=== PATIENT | female | born 1960 | race African-American/Black ===

== ENCOUNTER → 2023-10-14 | Outpatient (CLI) | payer MEDICARE ==
--- NOTE | 2023-10-17 08:24 | MM ---
Reason for Exam: Screening (asymptomatic). Last mammogram was performed 12 year(s) and 11 month(s) ago. Patient History: Menarche at age 10. First Full-Term at age 13. Postmenopausal. Mother had ovarian cancer. Risk Values: Dorita 5 year model risk: 1.7%. NCI Lifetime model risk: 6.0%. Prior Study Comparison: 01/09/2004 Bilateral Screening Mammogram, [facility]. 11/11/2009 Bilateral Screening Mammogram, [facility]. 11/16/2010 Bilateral Screening Mammogram, [facility]. Tissue Density: There are scattered areas of fibroglandular density. Findings: Analyzed By CAD. There is no suspicious group of microcalcifications or new suspicious mass in either breast. Overall Assessment: Negative, BI-RAD 1 Management: Screening Mammogram of both breasts in 1 year. . Patient should continue monthly self-breast exams. A clinical breast exam by your physician is recommended on an annual basis. This exam should not preclude additional follow-up of suspicious palpable abnormalities. Note on Dorita scores and lifetime risk: 1. A Dorita score greater than 3% is considered moderate risk. If this is the case, consider specialist referral to assess eligibility for a risk reducing agent. 2. If overall lifetime risk for the development of breast cancer is 20% or higher, the patient may qualify for future screening with alternating mammogram and breast MRI. Electronically signed and approved by: Otto Guerrero M.D. Radiologis
== END | disposition home or self-care (01) ==
LOC: RADMAMWWP 11:34
PROVIDERS: ATTEND Family Medicine
DX: Z12.31 Encounter for screening mammogram for malignant neoplasm of breast (principal); R92.323 Mammographic fibroglandular density, bilateral breasts; Z78.0 Asymptomatic menopausal state
CPT/HCPCS: 77063; 77067

== ENCOUNTER → 2023-12-28 | Outpatient (CLI) | payer MEDICARE ==
--- NOTE | 2024-01-02 22:21 | P.PCN ---
Date of Procedure: 12/28/23 Operative Findings: Home sleep study testing Date of service is 12/28/2023 Pertinent history This is a 66-year-old female patient, referred to me due to concerns of obstructive sleep apnea. This evaluation was requested to obtain a DOT certification as the patient is a schoolbus delivery route driver. The patient is currently averaging around 7 hours of sleep. No major hypersomnia or sleepiness during the day. Her current Wylie score is 3. The patient has history of loud snoring. No significant comorbid conditions at this point in time Pertinent physical findings Weight is 211 pounds with a body mass index of 42.6 Technical description The [employer] system was used to complete his home sleep study. This is a type III home sleep study evaluation. The total recording duration was 9 hours and 19 minutes. The study started at 10:17 PM and the study ended at 7:36 AM. There was a total of 9 hours and 4 minutes of flow monitoring and 9 hours and 3 minutes of oxygen saturation monitoring. Respiratory count The respiratory analysis showed a total of 49 obstructive apneas and 78 obstructive hypopneas. The resulting AHI was 14 Oxygenation analysis The baseline pulse ox while awake was 96%, average pulse ox during sleep was 93% and the minimum pulse ox was 74% and the patient spent approximately 70 minutes of sleep time below pulse ox of 89% Cardiac summary The average heart rate was 70 with a minimum heart rate of 57 and the maximum heart rate of 135 Assessment Mild CLYDE with an AHI of 14 associated with some mild nocturnal desaturation with a minimum pulse ox of 74% Snoring No major hypersomnia or sleepiness with an Wylie score of 3 Obesity with a BMI of 42 Schoolbus delivery route driver Plan There is also discussed with the patient. As the patient is seeking DOT certification for schoolbus driving, it would be important for this patient to be treated with CPAP therapy. If willing to undertake the treatment, going to offer this patient an APAP machine pressures of 5/15 cm of water with appropriate mask interface and the patient was seen back in follow-up for a compliancy check. Once compliant, should be able to obtain her DOT certification. Meanwhile, encouraged losing weight, optimize sleep hygiene measures. No other major comorbidities at this point. Will follow.
== END | disposition home or self-care (01) ==
LOC: 3 N SLEEP 11:13
PROVIDERS: ATTEND Internal Medicine Critical Care Medicine
DX: G47.33 Obstructive sleep apnea (adult) (pediatric) (principal); G47.36 Sleep related hypoventilation in conditions classified elsewhere; E66.9 Obesity, unspecified; Z68.41 Body mass index [BMI] 40.0-44.9, adult; Z91.09 Other allergy status, other than to drugs and biological substances; Z87.891 Personal history of nicotine dependence

== ENCOUNTER → 2024-05-14 | Outpatient (CLI) | payer MEDICARE, OTHER ==
[2024-05-14 12:50] VITALS: BP 134/93; PULSE 80; RESP 16; TEMP 97.6; BMI 43.8
--- NOTE | 2024-05-14 15:08 | P.HPBAR ---
Bariatric H&P - History & Physicial H&P Date: 05/14/24 History & Physicial: Visit/CC: f/u lapband Patient initial contact: Initial weight: 106.458 kg Initial weight in pounds: 234.70 Height: 4 ft 11 in Initial BMI: 47.4 Last weight: Current weight: 98.43 kg Current weight in pounds: 217.00 Current BMI: 43.8 [place] body weight (based on NIH guidelines): Excess body weight loss: The patient is a 63 year-old F who presents for Bariatric Assessment. This is a 63-year-old female who had Lap-Band surgery performed many years ago. Patient is often seen for a decade. Patient wished to have a adjustment of her Lap- Band. She states she has gained approxi-30 pounds over the last year. Past Medical History Past Medical History: Hypertension Additional Past Medical History / Comment(s): allergies History of Any Multi-Drug Resistant Organisms: None Reported Past Surgical History: Adenoidectomy, Bariatric Surgery, Section, Cholecystectomy, Hernia Repair, Orthopedic Surgery, Tonsillectomy, Tubal Ligation Additional Past Surgical History / Comment(s): lap band, surgery on lt wrist Past Anesthesia/Blood Transfusion Reactions: Previous Problems w/ Anesthesia Additional Past Anesthesia/Blood Transfusion Reaction / Comm: woke up during surgery twice Past Psychological History: No Psychological Hx Reported Smoking Status: Former smoker Past Alcohol Use History: None Reported Past Drug Use History: None Reported - Past Family History Mother Family Medical History: Cancer, Hypertension, Thyroid Disorder Additional Family Medical History / Comment(s): kidney failure, ovarian cancer, peptic ulcers, thyroid cancer Father Family Medical History: Cancer, Diabetes Mellitus Additional Family Medical History / Comment(s): from cancer, Surgical - Exam Vital Signs Temp Pulse Resp BP 97.6 F 80 16 134/93 05/14/24 12:35 05/14/24 12:35 05/14/24 12:35 05/14/24 12:35 - General well developed, well nourished, no distress - Eyes PERRL - ENT normal pinna - Neck no masses, no bruits - Respiratory normal expansion - Cardiovascular Rhythm: regular - Abdomen Abdomen: soft, non tender Bariatric Assessment & Plan Plan: Patient's Lap-Band adjusted. She had 0.3 cc after the band. She will follow-up in 4 weeks. Bariatric Checklist Checklist: Plan: Checklist: EGD: 1. Hiatal hernia: 2. H. Pylori: HgbA1c: Vitamin D: Smoking: Former smoker Primary care physician referral: Luis Felipe Olson/Dr Hutchinson Psychiatry clearance: Cardiology clearance: Sleep study: Diet journal: VTE risk score: VTE risk level: Rehab needs at discharge:
== END ==
LOC: BARWHC3 12:08
PROVIDERS: ATTEND Surgery
DX: Z46.51 Encounter for fitting and adjustment of gastric lap band (principal); Z68.41 Body mass index [BMI] 40.0-44.9, adult; Z87.891 Personal history of nicotine dependence; Z91.09 Other allergy status, other than to drugs and biological substances
CPT/HCPCS: 99211

== ENCOUNTER → 2024-05-22 | Outpatient (CLI) | payer MEDICARE, OTHER ==
--- NOTE | 2024-05-22 10:24 | US ---
EXAMINATION TYPE: US thyroid st tissue head/neck DATE OF EXAM: 05/22/2024 COMPARISON: NONE CLINICAL INDICATION: Female, 63 years old with history of E04.9 nontoxic goiter; Family history of th yroid CA TECHNIQUE: Grayscale and color Doppler imaging of the thyroid gland. FINDINGS: GLAND SIZE: Right Lobe: 5.1 x 1.9 x 2.3 cm Overall Parenchyma: homogeneous Left Lobe: 4.6 x 1.9 x 2.1 cm Overall Parenchyma: homogeneous Isthmus Thickness: 0.5 cm NODULES RIGHT: # of nodules measured on right: 0 LEFT: # of nodules measured on left: 0 ISTHMUS: # of nodules measured in the isthmus: 0 Bilateral neck scanned, no evidence of lymphadenopathy. IMPRESSION: No thyroid nodules. [facility], , 05/22/2024 10:22 AM
== END | disposition home or self-care (01) ==
LOC: RADUSWWP 09:39
PROVIDERS: ATTEND Family Medicine
DX: E04.9 Nontoxic goiter, unspecified (principal); Z80.8 Family history of malignant neoplasm of other organs or systems
CPT/HCPCS: 76536

== ENCOUNTER → 2024-06-11 | Outpatient (CLI) | payer MEDICARE, OTHER ==
--- NOTE | 2024-06-11 14:03 | P.HPBAR ---
Bariatric H&P - History & Physicial H&P Date: 06/11/24 History & Physicial: Visit/CC: Patient initial contact: Initial weight: 106.458 kg Initial weight in pounds: Height: 4 ft 11 in Initial BMI: Last weight: Current weight: 98.883 kg Current weight in pounds: Current BMI: [place] body weight (based on NIH guidelines): Excess body weight loss: The patient is a 63 year-old F who presents for Bariatric Assessment. Patient feels hungry she is requesting a fill of her band. Past Medical History Past Medical History: Hypertension Additional Past Medical History / Comment(s): allergies History of Any Multi-Drug Resistant Organisms: None Reported Past Surgical History: Adenoidectomy, Bariatric Surgery, Section, Cholecystectomy, Hernia Repair, Orthopedic Surgery, Tonsillectomy, Tubal Ligation Additional Past Surgical History / Comment(s): lap band, surgery on lt wrist Past Anesthesia/Blood Transfusion Reactions: Previous Problems w/ Anesthesia Additional Past Anesthesia/Blood Transfusion Reaction / Comm: woke up during surgery twice Past Psychological History: No Psychological Hx Reported Smoking Status: Former smoker Past Alcohol Use History: None Reported Past Drug Use History: None Reported - Past Family History Mother Family Medical History: Cancer, Hypertension, Thyroid Disorder Additional Family Medical History / Comment(s): kidney failure, ovarian cancer, peptic ulcers, thyroid cancer Father Family Medical History: Cancer, Diabetes Mellitus Additional Family Medical History / Comment(s): from cancer, Surgical - Exam - General well developed, well nourished, no distress - Eyes PERRL - ENT normal pinna - Neck no masses - Respiratory normal expansion - Cardiovascular Rhythm: regular - Abdomen Abdomen: soft, non tender Bariatric Assessment & Plan Plan: Patient Lap-Band adjusted. She had 0.2 cc added to the band. She will follow- up in 4 weeks. Bariatric Checklist Checklist: Plan: Checklist: EGD: 1. Hiatal hernia: 2. H. Pylori: HgbA1c: Vitamin D: Smoking: Former smoker Primary care physician referral: Luis Felipe Olson/Dr Hutchinson Psychiatry clearance: Cardiology clearance: Sleep study: Diet journal: VTE risk score: VTE risk level: Rehab needs at discharge:
[2024-06-11 15:32] VITALS: BP 155/88; PULSE 75; RESP 16; TEMP 98.1; BMI 44.0
== END ==
LOC: BARWHC3 08:31
PROVIDERS: ATTEND Surgery
DX: E66.01 Morbid (severe) obesity due to excess calories (principal); Z68.41 Body mass index [BMI] 40.0-44.9, adult; Z87.891 Personal history of nicotine dependence; Z91.09 Other allergy status, other than to drugs and biological substances
CPT/HCPCS: 43999